=== PATIENT | female | born 1975 | race Two or more races ===

== ENCOUNTER 2020-05-06 12:18 | Emergency (ER) | payer MEDICARE, MEDICAID ==
[~2020-05-06] VITALS: Ht 172.7 cm; Wt 96.8 kg
[~2020-05-06 12:18] MED LIST: ARIP15TA3 PO; CLON0.1T PO; DESV50TA20 PO; HYDR-4353 PO; LEVO75TA7 PO; PANT-47 PO; TRAZ-256 PO; UBRO50TA PO
[2020-05-06 13:54] LABS: CLARITY,URINE CLEAR (Clear); COLOR,URINE YELLOW (Yellow); GLUCOSE, URINE NEGATIVE (Neg); KETONES,URINE NEGATIVE (Neg); LEUKOCYTE ESTERASE ,URINE NEGATIVE (Neg); NITRITES, URINE NEGATIVE (Neg); OCCULT BLOOD,URINE NEGATIVE (Neg); PH,URINE 5.5 (4.8-8.0); PROTEIN,URINE NEGATIVE (Neg); UROBILINOGEN,URINE 0.2 E.U/dL (0.2-1.0)
[2020-05-06 13:55] LABS: UA COLLECTION TYPE CLN CATCH MIDSTREAM
[2020-05-06 14:13] LABS: BASOPHILS % (AUTO) 0.6 % (0-1); EOSINOPHILS % (AUTO) 0.5 % (0-6); HEMATOCRIT 36.3 % (35.0-45.0); LYMPHOCYTES # (AUTO) 1.7 X10'3 (1.1-4.8); LYMPHOCYTES % (AUTO) 34.8 % (21-51); MEAN CORPUSCULAR HGB CONC 33.1 g/dL (33.0-36.5); MEAN CORPUSCULAR VOLUME 84.7 FL (78-98); MEAN PLATELET VOLUME 8.3 FL (7.4-10.4); MONOCYTES # (AUTO) 0.3 X10'3 (0-0.9); MONOCYTES % (AUTO) 6.6 % (2-12); NEUTROPHILS # (AUTO) 2.9 X10'3 (1.8-7.7); NEUTROPHILS % (AUTO) 57.5 % (42-75); PLATELET COUNT 217 X10'3 (140-440); RED BLOOD COUNT 4.29 X10'6 (4.20-5.60); RED CELL DISTRIBUTION WIDTH 15.7 % (11.5-14.5)
[2020-05-06 14:27] LABS: PARTIAL THROMBOPLASTIN TIME 26 SECONDS (22-32)
[2020-05-06 14:30] LABS: ALANINE AMINOTRANSFERASE 24 U/L (12-78); ALBUMIN/GLOBULIN RATIO 1.1 (1.1-1.5); ALKALINE PHOSPHATASE 54 IU/L (46-116); ANION GAP 5 (8-16); ASPARTATE AMINO TRANSFERASE 21 U/L (10-37); BILIRUBIN,TOTAL 0.2 MG/DL (0.1-1.0); BLOOD UREA NITROGEN 17 MG/DL (7-18); BUN/CREATININE RATIO 14.5 (6.6-38.0); CALCIUM 9.3 MG/DL (8.5-10.1); CHLORIDE 105 MMOL/L (99-107); CREATININE 1.17 MG/DL (0.40-0.90); GLUCOSE 84 MG/DL (70-104); POTASSIUM 3.5 MMOL/L (3.5-5.1); SODIUM 140 MMOL/L (135-145); TOTAL CARBON DIOXIDE 29.6 MMOL/L (24-32); TOTAL PROTEIN 7.5 G/DL (6.4-8.2); eGFR 50 ML/MIN
[2020-05-06] MEDS ORDERED: ondansetron/PF 4mg/2ml inj IV ONE (14:40)
[2020-05-06] MEDS ORDERED: HYDROmorphone inj. 0.5 MG/0.5 ML DISP.SYRIN IV ONE (14:40)
[2020-05-06] MEDS ORDERED: ondansetron 4mg rapidly disintigrating tab PO ONE (15:15)
[2020-05-06] MEDS ORDERED: HYDROmorphone inj. 0.5 MG/0.5 ML DISP.SYRIN IM ONE (15:15)
[2020-05-06] MEDS ORDERED: CHOL10006 PO (15:51)
[2020-05-06] MEDS ORDERED: DESV25TA2 PO (15:51)
[2020-05-06] MEDS ORDERED: MULT-1085 PO (15:51)
[2020-05-06] MEDS ORDERED: ZOLP10TA PO (15:51)
[2020-05-06] MEDS ORDERED: TOPI50TA PO (15:51)
[2020-05-06] MEDS ORDERED: NALO25TA4 PO (15:51)
[2020-05-06 16:32] VITALS: BP 127/76
== END 2020-05-06 16:33 | disposition home or self-care (01) ==
LOC: ER 12:20
DX: K92.0 Hematemesis (principal); Z79.2 Long term (current) use of antibiotics; Z88.5 Allergy status to narcotic agent; Z88.8 Allergy status to other drugs, medicaments and biological substances; Z79.899 Other long term (current) drug therapy
CPT/HCPCS: 36415; 71045; 80053; 81003; 85025; 85610; 85730; 86885; 86900; 86901; 96372; 99285; J1170

== ENCOUNTER 2020-09-26 08:29 | Emergency (ER) | payer MEDICARE, MEDICAID ==
[~2020-09-26] VITALS: Ht 172.7 cm; Wt 100.0 kg
[~2020-09-26 08:29] MED LIST changes: +CHOL10006 PO; +DESV25TA2 PO; -DESV50TA20 PO; +MULT-1085 PO; +NALO25TA4 PO; +TOPI50TA PO; +ZOLP10TA PO
--- NOTE | 2020-09-26 10:03 | NUR ---
PT BACK FRO XRAY.
[2020-09-26] MEDS ORDERED: METH-360 PO (10:14)
[2020-09-26] MEDS ORDERED: orphenadrine citrate 60mg/2ml inj. IM ONE (10:15)
[2020-09-26] MEDS ORDERED: ketorolac tromethamine 15mg/ml inj. IM ONE (10:15)
[2020-09-26 10:51] VITALS: BP 99/64
== END 2020-09-26 10:54 | disposition home or self-care (01) ==
LOC: ER 08:30
DX: S70.01XA Contusion of right hip, initial encounter (principal); M25.551 Pain in right hip; G89.29 Other chronic pain; Z98.890 Other specified postprocedural states; Z88.8 Allergy status to other drugs, medicaments and biological substances; Z91.011 Allergy to milk products; Z91.018 Allergy to other foods; Z88.0 Allergy status to penicillin; Z88.5 Allergy status to narcotic agent; Z88.1 Allergy status to other antibiotic agents; Z79.899 Other long term (current) drug therapy; X58.XXXA Exposure to other specified factors, initial encounter; Y93.89 Activity, other specified; Y92.89 Other specified places as the place of occurrence of the external cause; Y99.8 Other external cause status
CPT/HCPCS: 73502; 96372; 99284; J1885; J2360

== ENCOUNTER 2020-10-18 01:26 | Inpatient (IN) | payer MEDICARE, MEDICAID ==
[~2020-10-18] VITALS: Ht 172.7 cm; Wt 102.3 kg
[2020-10-18] VITALS (17 sets, daily range): BP systolic 92–123; BP diastolic 46–82
[~2020-10-18 01:26] MED LIST changes: +METH-360 PO
[2020-10-18 02:05] LABS: BASOPHILS % (AUTO) 0.7 % (0-1); EOSINOPHILS # (AUTO) 0.1 X10'3 (0-0.9); EOSINOPHILS % (AUTO) 2.3 % (0-6); HEMATOCRIT 35.1 % (35.0-45.0); HEMOGLOBIN 11.3 g/dl (12.0-16.0); LYMPHOCYTES % (AUTO) 36.8 % (21-51); MEAN CORPUSCULAR HEMOGLOBIN 26.3 PG (27.0-31.0); MEAN CORPUSCULAR HGB CONC 32.3 g/dL (33.0-36.5); MEAN CORPUSCULAR VOLUME 81.4 FL (78-98); MEAN PLATELET VOLUME 8.1 FL (7.4-10.4); MONOCYTES # (AUTO) 0.4 X10'3 (0-0.9); MONOCYTES % (AUTO) 6.8 % (2-12); NEUTROPHILS # (AUTO) 2.9 X10'3 (1.8-7.7); NEUTROPHILS % (AUTO) 53.4 % (42-75); PLATELET COUNT 237 X10'3 (140-440); RED BLOOD COUNT 4.31 X10'6 (4.20-5.60); WHITE BLOOD COUNT 5.4 X10'3 (4.5-11.0)
[2020-10-18 02:15] LABS: ALANINE AMINOTRANSFERASE 29 U/L (12-78); ALBUMIN 3.6 G/DL (3.4-5.0); ALKALINE PHOSPHATASE 66 IU/L (46-116); ANION GAP 10 (8-16); ASPARTATE AMINO TRANSFERASE 23 U/L (10-37); BILIRUBIN,TOTAL 0.1 MG/DL (0.1-1.0); BLOOD UREA NITROGEN 17 MG/DL (7-18); BUN/CREATININE RATIO 13.3 (6.6-38.0); CALCIUM 8.8 MG/DL (8.5-10.1); CHLORIDE 108 MMOL/L (99-107); CREATININE 1.28 MG/DL (0.40-0.90); GLUCOSE 109 MG/DL (70-104); LIPASE 139 U/L (73-393); POTASSIUM 3.3 MMOL/L (3.5-5.1); SODIUM 144 MMOL/L (135-145); TOTAL CARBON DIOXIDE 26.3 MMOL/L (24-32); TOTAL PROTEIN 7.3 G/DL (6.4-8.2); eGFR 45 ML/MIN
[2020-10-18] MEDS ORDERED: pantoprazole 40 MG vial IV ONE (02:30)
[2020-10-18] MEDS ORDERED: oxyCODONE/APAP 10/325mg tablet PO ONE (02:35)
[2020-10-18] MEDS ORDERED: ondansetron/PF 4mg/2ml inj IV ONE (02:35)
[2020-10-18] MEDS ORDERED: GALC120P SQ (02:59)
--- NOTE | 2020-10-18 03:00 | NUR ---
PT BECAME NAUSEAS AFTER TAKING PAIN PILL, ZOFRAN WAS ALSO GIVEN, WILL CONTINUE TO EVALUATE AND MONITOR
[2020-10-18 03:12] LABS: URINE HCG NEGATIVE (NEG)
[2020-10-18 03:13] LABS: CLARITY,URINE CLEAR (Clear); COLOR,URINE YELLOW (Yellow); GLUCOSE, URINE NEGATIVE (Neg); KETONES,URINE NEGATIVE (Neg); LEUKOCYTE ESTERASE ,URINE NEGATIVE (Neg); NITRITES, URINE NEGATIVE (Neg); OCCULT BLOOD,URINE NEGATIVE (Neg); PROTEIN,URINE NEGATIVE (Neg); UROBILINOGEN,URINE 0.2 E.U/dL (0.2-1.0)
[2020-10-18 03:14] LABS: OCCULT BLOOD STOOL POSITIVE (Neg)
[2020-10-18 03:15] LABS: UA COLLECTION TYPE CLN CATCH MIDSTREAM
[2020-10-18] MEDS ORDERED: HYDROmorphone inj. 0.5 MG/0.5 ML DISP.SYRIN IV ONE (03:20)
[2020-10-18] MEDS ORDERED: potassium Cl 40MEQ/1/2NS 520ml 520 ML IV PRN ×2 (03:30)
[2020-10-18] MEDS: metoclopramide 5 mg/ml inj IV PRN ×2 (03:39→13:53)
[2020-10-18] MEDS: normal saline 1000ml 1,000 ML IV SCH ×3 (03:39→21:37)
[2020-10-18] MEDS ORDERED: zolpidem 5mg tablet PO PRN (03:40)
[2020-10-18] MEDS: pantoprazole 40MG/NS 100ML BAG 100 ML IV SCH ×4 (03:45→21:52)
--- NOTE | 2020-10-18 07:00 | NUR ---
Pt reporting she is with dry heaves. PRN antiemetic Reglan not available till after 9am, will page hospitalist.
--- NOTE | 2020-10-18 07:10 | NUR ---
Dr. Aaron paged and awaiting call.
[2020-10-18] MEDS: (Naloxegol Oxalate (Movantik) 1 TAB) PO SCH (08:00)
[2020-10-18] MEDS ORDERED: topiramate 25mg tablet PO SCH (08:00)
--- NOTE | 2020-10-18 08:00 | NUR ---
has not called, MD Aaron repaged.
--- NOTE | 2020-10-18 08:42 | NUR ---
MD MOE CALLED AND UPDATED ON PT UNCONTROLLED N/V. RECEIVED TVO FOR BENADRYL 25 MG IV Q6 HR PRN N/V AND ZOFRAN 4MG IV Q6 HR PRN N/V
[2020-10-18 09:30] LABS: BASOPHILS % (AUTO) 0.7 % (0-1); EOSINOPHILS # (AUTO) 0.1 X10'3 (0-0.9); EOSINOPHILS % (AUTO) 2.2 % (0-6); HEMATOCRIT 32.8 % (35.0-45.0); HEMOGLOBIN 10.6 g/dl (12.0-16.0); LYMPHOCYTES # (AUTO) 1.6 X10'3 (1.1-4.8); LYMPHOCYTES % (AUTO) 34.8 % (21-51); MEAN CORPUSCULAR HEMOGLOBIN 26.6 PG (27.0-31.0); MEAN CORPUSCULAR HGB CONC 32.4 g/dL (33.0-36.5); MEAN CORPUSCULAR VOLUME 81.9 FL (78-98); MONOCYTES # (AUTO) 0.4 X10'3 (0-0.9); MONOCYTES % (AUTO) 8.6 % (2-12); NEUTROPHILS # (AUTO) 2.5 X10'3 (1.8-7.7); NEUTROPHILS % (AUTO) 53.7 % (42-75); PLATELET COUNT 209 X10'3 (140-440); RED CELL DISTRIBUTION WIDTH 17.2 % (11.5-14.5); WHITE BLOOD COUNT 4.7 X10'3 (4.5-11.0)
[2020-10-18] MEDS: ondansetron/PF 4mg/2ml inj IV PRN ×3 (09:33→23:48)
[2020-10-18] MEDS: diphenhydrAMINE 50 mg/ml inj IV PRN ×3 (09:33→23:50)
[2020-10-18] MEDS: HYDROmorphone inj. 0.5 MG/0.5 ML DISP.SYRIN IV PRN ×3 (09:38→19:06)
[2020-10-18] MEDS: K and/or MAG REPLACEMENT MC SCH ×2 (09:45→19:21)
[2020-10-18] MEDS: ARIPIPRAZOLE 15 MG TABLET PO SCH (09:49)
[2020-10-18] MEDS: levoTHYROXINE 75mcg tablet PO SCH (09:49)
[2020-10-18] MEDS ORDERED: ESTR1PAT95 TOP (10:33)
[2020-10-18] MEDS ORDERED: TOP100T PO (10:33)
[2020-10-18] MEDS ORDERED: DESV50TA PO (10:33)
[2020-10-18] MEDS ORDERED: PREG50CA PO (10:33)
[2020-10-18] MEDS ORDERED: UBRO100T PO (10:38)
--- NOTE | 2020-10-18 13:55 | NUR ---
PT MEDICATED FOR PAIN AND NAUSEA
--- NOTE | 2020-10-18 14:20 | NUR ---
Pt was taken to GI lab.
[2020-10-18] MEDS ORDERED: MIDAZolam 1 MG/ML 5ML VIAL ONE (14:22)
[2020-10-18] MEDS ORDERED: LIDOcaine Viscous 15ml cup ONE (14:22)
[2020-10-18] MEDS ORDERED: fentaNYL/PF 50MCG/1 ML 2ML syringe ONE (14:22)
--- NOTE | 2020-10-18 17:49 | NUR ---
focused assessment: anterior lungs sounds inspiratory and expiratory clear. regular, symmetrical. no cough. pt reports sob on exertion. bowel sounds heard in all 4 quadrants, pain in upper abdomen on palpation. pt reports passing flatus. ambulates independently to toilet.
--- NOTE | 2020-10-18 17:50 | NUR ---
PAGER ID: [phone] MESSAGE: [facility] [id number] re: [id number] Abdifatah Chappell GI doctor recommended clear liquid, could I change her diet at this time. thanks oLuis.
--- NOTE | 2020-10-18 18:02 | NUR ---
pt restarted on protonix 8 mg/hr. 25 mg iv benadryl and 4 mg iv zofran iv administered
--- NOTE | 2020-10-18 18:30 | NUR ---
Problems reprioritized. Patient report given, questions answered & plan of care reviewed with Radha KELLY.
[2020-10-18] MEDS: topiramate 100mg tablet PO SCH (19:07)
[2020-10-18] MEDS ORDERED: traZODone 150mg tablet PO SCH (21:00)
[2020-10-19 02:00] VITALS: BP 111/68
[2020-10-19] MEDS: pantoprazole 40MG/NS 100ML BAG 100 ML IV SCH ×2 (02:17→08:12)
[2020-10-19] MEDS: HYDROmorphone inj. 0.5 MG/0.5 ML DISP.SYRIN IV PRN ×2 (02:18→07:07)
[2020-10-19] MEDS: metoclopramide 5 mg/ml inj IV PRN (04:14)
[2020-10-19 06:00] VITALS: BP 93/50
[2020-10-19 06:31] LABS: BASOPHILS % (AUTO) 0.6 % (0-1); EOSINOPHILS # (AUTO) 0.1 X10'3 (0-0.9); EOSINOPHILS % (AUTO) 3.1 % (0-6); HEMATOCRIT 36.1 % (35.0-45.0); HEMOGLOBIN 11.5 g/dl (12.0-16.0); LYMPHOCYTES # (AUTO) 1.5 X10'3 (1.1-4.8); LYMPHOCYTES % (AUTO) 36.3 % (21-51); MEAN CORPUSCULAR HEMOGLOBIN 26.4 PG (27.0-31.0); MEAN CORPUSCULAR VOLUME 82.7 FL (78-98); MEAN PLATELET VOLUME 8.1 FL (7.4-10.4); MONOCYTES # (AUTO) 0.3 X10'3 (0-0.9); MONOCYTES % (AUTO) 7.3 % (2-12); NEUTROPHILS # (AUTO) 2.2 X10'3 (1.8-7.7); NEUTROPHILS % (AUTO) 52.7 % (42-75); PLATELET COUNT 213 X10'3 (140-440); RED BLOOD COUNT 4.36 X10'6 (4.20-5.60); RED CELL DISTRIBUTION WIDTH 16.9 % (11.5-14.5); WHITE BLOOD COUNT 4.1 X10'3 (4.5-11.0)
--- NOTE | 2020-10-19 06:38 | NUR ---
Problems reprioritized. Patient report given, questions answered & plan of care reviewed with LETICIA Chamberlain.
[2020-10-19 06:44] LABS: ALANINE AMINOTRANSFERASE 35 U/L (12-78); ALBUMIN 3.3 G/DL (3.4-5.0); ALKALINE PHOSPHATASE 60 IU/L (46-116); ANION GAP 10 (8-16); ASPARTATE AMINO TRANSFERASE 38 U/L (10-37); BILIRUBIN,TOTAL 0.3 MG/DL (0.1-1.0); BLOOD UREA NITROGEN 13 MG/DL (7-18); BUN/CREATININE RATIO 11.5 (6.6-38.0); CALCIUM 8.9 MG/DL (8.5-10.1); CHLORIDE 110 MMOL/L (99-107); CREATININE 1.13 MG/DL (0.40-0.90); GLUCOSE 71 MG/DL (70-104); POTASSIUM 3.9 MMOL/L (3.5-5.1); SODIUM 144 MMOL/L (135-145); TOTAL CARBON DIOXIDE 24.4 MMOL/L (24-32); TOTAL PROTEIN 6.7 G/DL (6.4-8.2); eGFR 52 ML/MIN
--- NOTE | 2020-10-19 06:45 | NUR ---
Patient in room PCU 3023. I have received report from Radha KELLY and had the opportunity to ask questions and assume patient care.
[2020-10-19 07:00] VITALS: BP 105/58
[2020-10-19] MEDS: ondansetron/PF 4mg/2ml inj IV PRN (07:07)
[2020-10-19] MEDS: topiramate 100mg tablet PO SCH (07:08)
[2020-10-19] MEDS: levoTHYROXINE 75mcg tablet PO SCH (07:08)
[2020-10-19] MEDS: (Naloxegol Oxalate (Movantik) 1 TAB) PO SCH (08:00)
[2020-10-19] MEDS: ARIPIPRAZOLE 15 MG TABLET PO SCH (08:34)
[2020-10-19] MEDS ORDERED: pantoprazole 40mg Tablet.DR PO ONE (09:45)
--- NOTE | 2020-10-19 10:39 | NUR ---
Per patient, her portacath is overseen and managed by Ralph metzger. I have discussed with patient that we will flush her port with saline and heparinized syringe today prior to discharge. Signs and symptoms of infection to watch for and when to notify the doctor were discussed with the patient
--- NOTE | 2020-10-19 10:51 | NUR ---
Discharge instructions given to patient, patient verbalized understanding of all instructions made. Patient's portacath site will be flush and heparinized prior to discharge. Awaiting for pharmacy to deliver the heparinized syringe.
--- NOTE | 2020-10-19 11:05 | NUR ---
Right chest portacath was deaccessed. Portacath tubing was flushed with 10ml NS saline syringe, blood aspirated from the portacath, flush again with 10ml saline syringe without difficulty. Then, Portacath tubing flushed with 5ml heparinized syringe. Patient tolerated the procedure well. Procedure performed under sterile technique, cleaned the site with chlorhexidine swabs then covered with sterile dry gauze and transparent dressing.
--- NOTE | 2020-10-19 11:34 | NUR ---
EGD report in the chart that says patient copy was given to patient. Advised patient to follow up with Dr. Conklin in 1 week as per paperwork instruction stated. Patient verbalized understanding
[2020-10-19] MEDS ORDERED: heparin sodium, porcine/PF 100unit/ml 5ML syringe IV ONE (12:00)
--- NOTE | 2020-10-20 13:06 | NUR ---
CASE MANAGEMENT DISCHARGE FOLLOW UP: Spoke with pt via telephone. Reports that she is feeling a little better, has slept a lot since discharge; denies CP, SOB, N/V, fever/chills. States still having some blood in vomit and stools, states that it is also painful to eat, rates pain 6/10. States taking home medications Phenergan and [place]be[place] for comfort, states they are helping a little. Pt states will follow up with Dr Kim and her PCP, requesting assistance in setting up appointments, will assist pt. Verbalizes understanding of s/sx requiring further evaluation/emergent assistance. Verbalizes compliance with MD discharge instructions. States no further questions/concerns at this time. Addendum: 10/20/20 at 1418 by Razia Yo RN 1403 T/c to Dr Kim's office. Per receptionist telephone operator, pt was a no call/no show to an EGD appointment in 2019, so she will need a new referral from PCP in order to schedule. 1409 T/c to pt's PCP, left message requesting that they call pt to set up f/u appointment as well as get referral for GI specialist and that she was going to [place]. 1411 t/c to pt, notified her of results of attempt to set up f/u appointment, she states her PCP is really good about calling her back quickly. States no further needs at this time. States will return to ED if bleeding does not stop or gets worse, especially if she becomes symptomatic, she verbalizes understanding.
== END 2020-10-19 11:35 | disposition home or self-care (01) | DRG 370 ==
LOC: ER 01:26 → ED HOLD 03:26 → PCU 3S 16:46
PROVIDERS: ADMIT Internal Medicine; ATTEND Family Medicine
PROC: 0DB48ZX Excision of Esophagogastric Junction, Via Natural or Artificial Opening Endoscopic, Diagnostic (ICD-10-PCS; principal; 2020-10-18)
PROC: 0DB68ZX Excision of Stomach, Via Natural or Artificial Opening Endoscopic, Diagnostic (ICD-10-PCS; 2020-10-18)
DX: K21.01 Gastro-esophageal reflux disease with esophagitis, with bleeding (principal); K29.70 Gastritis, unspecified, without bleeding; F32.9 Major depressive disorder, single episode, unspecified; F41.9 Anxiety disorder, unspecified; G43.909 Migraine, unspecified, not intractable, without status migrainosus; G89.29 Other chronic pain; M54.9 Dorsalgia, unspecified; I10 Essential (primary) hypertension; Z79.899 Other long term (current) drug therapy; Z83.3 Family history of diabetes mellitus; Z87.442 Personal history of urinary calculi; Z90.5 Acquired absence of kidney; Z90.710 Acquired absence of both cervix and uterus; Z98.84 Bariatric surgery status; Z90.49 Acquired absence of other specified parts of digestive tract; Z88.0 Allergy status to penicillin; Z88.8 Allergy status to other drugs, medicaments and biological substances; Z88.6 Allergy status to analgesic agent; Z91.011 Allergy to milk products
CPT/HCPCS: 36415; 43239; 80053; 81003; 81025; 82272; 82948; 83690; 85025; 86885; 86900; 86901; 88305; 88313; 96374; 96375; 99152; 99285; A4620; C9113; G0378; J1170; J1200; J1642; J2250; J2405; J2765; J3010; J3480; J7030; J7040

== ENCOUNTER 2021-04-16 09:10 | Emergency (ER) | payer MEDICARE, MEDICAID ==
[~2021-04-16] VITALS: Ht 172.7 cm; Wt 112.1 kg
[~2021-04-16 09:10] MED LIST changes: -DESV25TA2 PO; +DESV50TA PO; +ESTR1PAT95 TOP; +GALC120P SQ; -METH-360 PO; +PREG50CA PO; +TOP100T PO; -TOPI50TA PO; +UBRO100T PO; -UBRO50TA PO
[2021-04-16 10:13] LABS: BASOPHILS % (AUTO) 0.7 % (0-1); EOSINOPHILS # (AUTO) 0.1 X10'3 (0-0.9); EOSINOPHILS % (AUTO) 1.6 % (0-6); HEMATOCRIT 36.9 % (35.0-45.0); HEMOGLOBIN 12.2 g/dl (12.0-16.0); LYMPHOCYTES # (AUTO) 1.6 X10'3 (1.1-4.8); LYMPHOCYTES % (AUTO) 31.8 % (21-51); MEAN CORPUSCULAR HGB CONC 32.9 g/dL (33.0-36.5); MEAN CORPUSCULAR VOLUME 82.1 FL (78-98); MEAN PLATELET VOLUME 8.5 FL (7.4-10.4); MONOCYTES # (AUTO) 0.5 X10'3 (0-0.9); MONOCYTES % (AUTO) 9.8 % (2-12); NEUTROPHILS # (AUTO) 2.8 X10'3 (1.8-7.7); NEUTROPHILS % (AUTO) 56.1 % (42-75); PLATELET COUNT 247 X10'3 (140-440); RED CELL DISTRIBUTION WIDTH 16.3 % (11.5-14.5)
--- NOTE | 2021-04-16 10:16 | NUR ---
notified dr gerber thatpt is c/o abd pain and nausea as per md he will look at the pt and not want to give anything for pain at this time.
[2021-04-16 10:19] LABS: ALANINE AMINOTRANSFERASE 58 U/L (12-78); ALBUMIN 3.5 G/DL (3.4-5.0); ALBUMIN/GLOBULIN RATIO 0.9 (1.1-1.5); ALKALINE PHOSPHATASE 82 IU/L (46-116); ANION GAP 10 (8-16); ASPARTATE AMINO TRANSFERASE 43 U/L (10-37); BILIRUBIN,TOTAL 0.1 MG/DL (0.1-1.0); BLOOD UREA NITROGEN 17 MG/DL (7-18); BUN/CREATININE RATIO 16.5 (6.6-38.0); CALCIUM 8.4 MG/DL (8.5-10.1); CHLORIDE 106 MMOL/L (99-107); CREATININE 1.03 MG/DL (0.40-0.90); GLUCOSE 104 MG/DL (70-104); LIPASE 158 U/L (73-393); POTASSIUM 4.4 MMOL/L (3.5-5.1); SODIUM 144 MMOL/L (135-145); TOTAL CARBON DIOXIDE 28.3 MMOL/L (24-32); TOTAL PROTEIN 7.2 G/DL (6.4-8.2); eGFR 58 ML/MIN
[2021-04-16] MEDS ORDERED: LORazepam 2 mg/ml vial IV ONE (10:40)
[2021-04-16] MEDS ORDERED: pantoprazole 40 MG vial IV STA (10:53)
[2021-04-16] MEDS ORDERED: normal saline 1000ml 1,000 ML IV ONE (11:05)
[2021-04-16 11:06] LABS: ETHANOL < 0.010 GM/DL (0.0-0.010); MAGNESIUM 2.1 MG/DL (1.5-2.4)
[2021-04-16] MEDS ORDERED: diatrozoate meglu/diatrozoate sod (37% iodine) 120ML oral solution PO ONE (11:20)
[2021-04-16] MEDS ORDERED: morphine 2 MG/ML inj. syringe IV ONE (11:25)
[2021-04-16 11:26] LABS: OCCULT BLOOD STOOL POSITIVE (Neg)
[2021-04-16 11:48] LABS: ACETAMINOPHEN < 2.0 UG/ML (10-30)
[2021-04-16 11:50] LABS: PARTIAL THROMBOPLASTIN TIME 25 SECONDS (22-32)
[2021-04-16] MEDS ORDERED: diatr meglu/diatrizoate 30ml oral sol.-(3 dose) bottle PO ONE (12:10)
[2021-04-16 12:23] LABS: HEMATOCRIT 33.1 % (35.0-45.0); MEAN CORPUSCULAR HEMOGLOBIN 27.1 PG (27.0-31.0); MEAN CORPUSCULAR HGB CONC 33.1 g/dL (33.0-36.5); MEAN PLATELET VOLUME 8.5 FL (7.4-10.4); PLATELET COUNT 227 X10'3 (140-440); RED BLOOD COUNT 4.04 X10'6 (4.20-5.60); WHITE BLOOD COUNT 4.1 X10'3 (4.5-11.0)
[2021-04-16] MEDS ORDERED: potassium Cl 20 mEq SR tablet PO PRN ×2 (12:25)
[2021-04-16] MEDS ORDERED: magnesium Cl slow-release 64mg tablet PO PRN (12:25)
[2021-04-16] MEDS ORDERED: magnesium 4gm in 100ml NS 100 ML IV PRN (12:25)
[2021-04-16] MEDS ORDERED: magnesium 2GM in 50ml NS 50 ML IV PRN (12:25)
[2021-04-16] MEDS ORDERED: potassium Cl 40MEQ/1/2NS 520ml 520 ML IV PRN ×2 (12:25)
[2021-04-16] MEDS ORDERED: acetaminophen 325mg tablet PO PRN (12:25)
[2021-04-16] MEDS ORDERED: iohexol 350MG/ML 100ml bottle IV ONE ×2 (12:27→13:15)
--- NOTE | 2021-04-16 12:34 | NUR ---
dr alcocer at bedside.
[2021-04-16 12:35] LABS: CLARITY,URINE CLEAR (Clear); COLOR,URINE YELLOW (Yellow); GLUCOSE, URINE NEGATIVE (Neg); KETONES,URINE NEGATIVE (Neg); OCCULT BLOOD,URINE NEGATIVE (Neg); PH,URINE 7.5 (4.8-8.0); PROTEIN,URINE NEGATIVE (Neg); UA COLLECTION TYPE CLN CATCH MIDSTREAM
[2021-04-16 12:36] LABS: LEUKOCYTE ESTERASE ,URINE NEGATIVE (Neg); NITRITES, URINE NEGATIVE (Neg); UROBILINOGEN,URINE 0.2 E.U/dL (0.2-1.0)
[2021-04-16 12:38] LABS: URINE HCG NEGATIVE (NEG)
[2021-04-16] MEDS ORDERED: ARIP20TA21 PO (12:39)
[2021-04-16] MEDS ORDERED: PROM25TA14 PO (12:39)
[2021-04-16] MEDS ORDERED: PREG50CA64 PO (12:39)
[2021-04-16] MEDS ORDERED: ALPR-13 PO (12:39)
--- NOTE | 2021-04-16 14:30 | NUR ---
I have received report from [facility] and had the opportunity to ask questions and will assume patient care once to floor.
--- NOTE | 2021-04-16 15:28 | NUR ---
spoke to dr alcocer regarding pt pain order for 0.5 mg morphine q6 hr prn for pain and norco 5-325 mg q6 hr prn for pain.
[2021-04-16] MEDS: morphine 2 MG/ML inj. syringe IV PRN ×2 (15:47→22:29)
[2021-04-16] MEDS: normal saline 1000ml 1,000 ML IV SCH ×2 (15:48→22:33)
[2021-04-16] MEDS: pantoprazole 40MG/NS 100ML BAG 100 ML IV SCH ×2 (15:54→20:33)
[2021-04-16 16:15] VITALS: BP 130/82
--- NOTE | 2021-04-16 16:15 | NUR ---
Pt arrived to room 360B. A&Ox4, no c/o, no s/sx distress. VSS. PIV infusing fluids per MD orders. Pt oriented to room and POC, questions answered, pt verbalizes understanding. Will continue to monitor.
[2021-04-16] MEDS ORDERED: UBROGEPANT 100 MG PO PRN (18:15)
[2021-04-16] MEDS ORDERED: ALPRAZolam 0.5mg tablet PO PRN (18:15)
--- NOTE | 2021-04-16 18:26 | NUR ---
Problems reprioritized. Patient report given, questions answered & plan of care reviewed with Idania KELLY.
--- NOTE | 2021-04-16 18:30 | NUR ---
Patient in room [facility] 360. I have received report from ROSELYN and had the opportunity to ask questions and assume patient care.
[2021-04-16] MEDS: proMETHazine 25mg tablet PO PRN (18:58)
[2021-04-16 19:00] VITALS: BP 105/55
[2021-04-16] MEDS: K and/or MAG REPLACEMENT MC SCH (20:00)
[2021-04-16] MEDS: pregabalin 25mg capsule PO SCH (20:34)
[2021-04-16] MEDS: topiramate 100mg tablet PO SCH (20:34)
[2021-04-16] MEDS: HYDROcodone/acetaminophen 5mg/325mg tablet PO PRN (20:34)
[2021-04-16] MEDS: traZODone 50mg tablet PO SCH (22:23)
[2021-04-16 23:00] VITALS: BP 99/56
[2021-04-17] VITALS (8 sets, daily range): BP systolic 92–122; BP diastolic 53–80
[2021-04-17] MEDS: pantoprazole 40MG/NS 100ML BAG 100 ML IV SCH ×5 (01:56→20:20)
[2021-04-17] MEDS: HYDROcodone/acetaminophen 5mg/325mg tablet PO PRN ×2 (02:36→20:32)
[2021-04-17] MEDS: morphine 2 MG/ML inj. syringe IV PRN ×2 (05:08→15:17)
[2021-04-17 06:21] LABS: BASOPHILS % (AUTO) 0.8 % (0-1); EOSINOPHILS # (AUTO) 0.1 X10'3 (0-0.9); EOSINOPHILS % (AUTO) 2.4 % (0-6); HEMATOCRIT 33.1 % (35.0-45.0); HEMOGLOBIN 10.9 g/dl (12.0-16.0); LYMPHOCYTES # (AUTO) 1.5 X10'3 (1.1-4.8); MEAN CORPUSCULAR HEMOGLOBIN 27.2 PG (27.0-31.0); MEAN CORPUSCULAR HGB CONC 33.1 g/dL (33.0-36.5); MEAN CORPUSCULAR VOLUME 82.2 FL (78-98); MEAN PLATELET VOLUME 8.7 FL (7.4-10.4); MONOCYTES # (AUTO) 0.3 X10'3 (0-0.9); MONOCYTES % (AUTO) 9.2 % (2-12); NEUTROPHILS # (AUTO) 1.7 X10'3 (1.8-7.7); NEUTROPHILS % (AUTO) 46.6 % (42-75); PLATELET COUNT 201 X10'3 (140-440); RED BLOOD COUNT 4.02 X10'6 (4.20-5.60); RED CELL DISTRIBUTION WIDTH 15.8 % (11.5-14.5); WHITE BLOOD COUNT 3.6 X10'3 (4.5-11.0)
--- NOTE | 2021-04-17 06:33 | NUR ---
Problems reprioritized. Patient report given, questions answered & plan of care reviewed with CHIP .
[2021-04-17 06:39] LABS: ALANINE AMINOTRANSFERASE 52 U/L (12-78); ALBUMIN 2.7 G/DL (3.4-5.0); ALBUMIN/GLOBULIN RATIO 0.8 (1.1-1.5); ALKALINE PHOSPHATASE 70 IU/L (46-116); ANION GAP 5 (8-16); ASPARTATE AMINO TRANSFERASE 44 U/L (10-37); BILIRUBIN,TOTAL 0.3 MG/DL (0.1-1.0); BLOOD UREA NITROGEN 12 MG/DL (7-18); BUN/CREATININE RATIO 11.8 (6.6-38.0); CALCIUM 8.3 MG/DL (8.5-10.1); CHLORIDE 111 MMOL/L (99-107); CREATININE 1.02 MG/DL (0.40-0.90); GLUCOSE 83 MG/DL (70-104); POTASSIUM 4.1 MMOL/L (3.5-5.1); SODIUM 143 MMOL/L (135-145); TOTAL CARBON DIOXIDE 26.9 MMOL/L (24-32); TOTAL PROTEIN 5.9 G/DL (6.4-8.2); eGFR 59 ML/MIN
[2021-04-17] MEDS ORDERED: ARIPIPRAZOLE 10 MG TABLET PO SCH ×2 (08:00→22:29)
[2021-04-17] MEDS: K and/or MAG REPLACEMENT MC SCH ×2 (08:00→20:00)
[2021-04-17] MEDS: NALOXEGOL OXALATE 25 MG PO SCH (08:00)
[2021-04-17] MEDS: topiramate 100mg tablet PO SCH ×2 (08:56→20:29)
[2021-04-17] MEDS: normal saline 1000ml 1,000 ML IV SCH ×3 (08:56→20:48)
[2021-04-17] MEDS: pregabalin 25mg capsule PO SCH ×2 (08:57→20:30)
[2021-04-17] MEDS: levoTHYROXINE 75mcg tablet PO SCH (08:58)
[2021-04-17] MEDS: proMETHazine 25mg tablet PO PRN (08:58)
[2021-04-17] MEDS: venlafaxine 25mg tablet PO SCH ×3 (09:00→20:31)
[2021-04-17] MEDS ORDERED: fentaNYL/PF 50MCG/1 ML 2ML syringe ONE (11:59)
[2021-04-17] MEDS ORDERED: MIDAZolam 1 MG/ML 5ML VIAL ONE (12:00)
[2021-04-17] MEDS: diphenhydrAMINE 50 mg/ml inj IV PRN ×2 (13:28→20:14)
[2021-04-17] MEDS: ondansetron/PF 4mg/2ml inj IV PRN ×2 (13:28→20:38)
[2021-04-17 16:05] LABS: BASOPHILS % (AUTO) 0.7 % (0-1); EOSINOPHILS # (AUTO) 0.1 X10'3 (0-0.9); EOSINOPHILS % (AUTO) 1.9 % (0-6); HEMATOCRIT 32.5 % (35.0-45.0); HEMOGLOBIN 10.8 g/dl (12.0-16.0); LYMPHOCYTES # (AUTO) 1.4 X10'3 (1.1-4.8); MEAN CORPUSCULAR HEMOGLOBIN 26.9 PG (27.0-31.0); MEAN CORPUSCULAR HGB CONC 33.2 g/dL (33.0-36.5); MEAN PLATELET VOLUME 8.5 FL (7.4-10.4); MONOCYTES # (AUTO) 0.3 X10'3 (0-0.9); MONOCYTES % (AUTO) 8.7 % (2-12); NEUTROPHILS # (AUTO) 1.6 X10'3 (1.8-7.7); NEUTROPHILS % (AUTO) 47.7 % (42-75); PLATELET COUNT 200 X10'3 (140-440); RED BLOOD COUNT 4.01 X10'6 (4.20-5.60); WHITE BLOOD COUNT 3.3 X10'3 (4.5-11.0)
--- NOTE | 2021-04-17 18:29 | NUR ---
Problems reprioritized. Patient report given, questions answered & plan of care reviewed with Jp KELLY.
[2021-04-17] MEDS: traZODone 50mg tablet PO SCH (20:28)
[2021-04-17] MEDS ORDERED: zolpidem 5mg tablet PO PRN (22:10)
[2021-04-17] MEDS ORDERED: zolpidem 5mg tablet PO SCH (22:29)
[2021-04-18] VITALS: BP 92/52
[2021-04-18] MEDS: pantoprazole 40MG/NS 100ML BAG 100 ML IV SCH ×3 (00:48→11:00)
[2021-04-18] MEDS: morphine 2 MG/ML inj. syringe IV PRN ×2 (00:52→07:04)
[2021-04-18] MEDS: normal saline 1000ml 1,000 ML IV SCH (04:36)
[2021-04-18] MEDS: ondansetron/PF 4mg/2ml inj IV PRN ×2 (05:31→11:26)
[2021-04-18] MEDS: diphenhydrAMINE 50 mg/ml inj IV PRN ×2 (05:34→11:25)
[2021-04-18 06:12] LABS: BASOPHILS % (AUTO) 0.6 % (0-1); EOSINOPHILS # (AUTO) 0.1 X10'3 (0-0.9); EOSINOPHILS % (AUTO) 2.9 % (0-6); HEMATOCRIT 34.6 % (35.0-45.0); HEMOGLOBIN 11.4 g/dl (12.0-16.0); LYMPHOCYTES # (AUTO) 1.5 X10'3 (1.1-4.8); LYMPHOCYTES % (AUTO) 37.9 % (21-51); MEAN CORPUSCULAR HEMOGLOBIN 26.9 PG (27.0-31.0); MEAN CORPUSCULAR HGB CONC 33.1 g/dL (33.0-36.5); MEAN CORPUSCULAR VOLUME 81.2 FL (78-98); MEAN PLATELET VOLUME 8.4 FL (7.4-10.4); MONOCYTES # (AUTO) 0.4 X10'3 (0-0.9); NEUTROPHILS # (AUTO) 1.8 X10'3 (1.8-7.7); NEUTROPHILS % (AUTO) 47.6 % (42-75); PLATELET COUNT 219 X10'3 (140-440); RED BLOOD COUNT 4.25 X10'6 (4.20-5.60); RED CELL DISTRIBUTION WIDTH 16.6 % (11.5-14.5); WHITE BLOOD COUNT 3.9 X10'3 (4.5-11.0)
[2021-04-18 06:22] LABS: ALANINE AMINOTRANSFERASE 65 U/L (12-78); ALBUMIN/GLOBULIN RATIO 0.9 (1.1-1.5); ALKALINE PHOSPHATASE 73 IU/L (46-116); ANION GAP 6 (8-16); ASPARTATE AMINO TRANSFERASE 45 U/L (10-37); BILIRUBIN,TOTAL 0.2 MG/DL (0.1-1.0); BLOOD UREA NITROGEN 11 MG/DL (7-18); BUN/CREATININE RATIO 9.6 (6.6-38.0); CALCIUM 8.6 MG/DL (8.5-10.1); CHLORIDE 108 MMOL/L (99-107); CREATININE 1.15 MG/DL (0.40-0.90); GLUCOSE 100 MG/DL (70-104); MAGNESIUM 2.2 MG/DL (1.5-2.4); POTASSIUM 3.7 MMOL/L (3.5-5.1); SODIUM 140 MMOL/L (135-145); TOTAL CARBON DIOXIDE 26.2 MMOL/L (24-32); TOTAL PROTEIN 6.2 G/DL (6.4-8.2); eGFR 51 ML/MIN
--- NOTE | 2021-04-18 06:28 | NUR ---
I agree with assessments, documentation, and report given from VIDHI Bejarano [employer] Student. Report was given to LETICIA Myers and VERNON Carrillo student
--- NOTE | 2021-04-18 06:37 | NUR ---
Problems reprioritized. Patient report given, questions answered & plan of care reviewed with Louis Hernandez RN and SN Gurjit.
[2021-04-18] MEDS: levoTHYROXINE 75mcg tablet PO SCH (06:52)
[2021-04-18] MEDS: topiramate 100mg tablet PO SCH (07:12)
[2021-04-18] MEDS: venlafaxine 25mg tablet PO SCH (07:12)
[2021-04-18] MEDS: pregabalin 25mg capsule PO SCH (07:13)
[2021-04-18 07:58] VITALS: BP 100/64
[2021-04-18] MEDS: K and/or MAG REPLACEMENT MC SCH (08:00)
[2021-04-18] MEDS: NALOXEGOL OXALATE 25 MG PO SCH (08:00)
[2021-04-18] MEDS ORDERED: ARIPIPRAZOLE 10 MG TABLET PO SCH (08:00)
--- NOTE | 2021-04-18 08:10 | NUR ---
Patient in room [facility] 360. I have received report from Jp KELLY and had the opportunity to ask questions and assume patient care.
[2021-04-18] MEDS: proMETHazine 25mg tablet PO PRN (09:13)
[2021-04-18] MEDS: HYDROcodone/acetaminophen 5mg/325mg tablet PO PRN (09:13)
[2021-04-18 12:58] VITALS: BP 93/51
--- NOTE | 2021-04-18 14:09 | NUR ---
Patient discharged by student, patient showed verbal understanding of the teaching. No new medications were added. Patients IV were taken out at discharge and pressure held. Patient left with all of her belongings at time of discharge and was taken down to the lobby via wheelchair.
== END 2021-04-18 12:30 | disposition home or self-care (01) ==
LOC: ER 09:12 → CANBEDREQ 13:31 → SUR 3N 16:31 → ER 04-18 12:30
DX: K92.2 Gastrointestinal hemorrhage, unspecified (principal); Z20.822 Contact with and (suspected) exposure to COVID-19; I95.1 Orthostatic hypotension; G89.29 Other chronic pain; Z98.890 Other specified postprocedural states; Z98.84 Bariatric surgery status; Z85.9 Personal history of malignant neoplasm, unspecified; Z79.899 Other long term (current) drug therapy; Z88.6 Allergy status to analgesic agent; Z88.8 Allergy status to other drugs, medicaments and biological substances; Z88.0 Allergy status to penicillin; Z91.048 Other nonmedicinal substance allergy status; Z91.011 Allergy to milk products; Z88.1 Allergy status to other antibiotic agents
CPT/HCPCS: 36415; 74174; 80053; 80320; 80329; 81003; 81025; 82272; 83690; 83735; 85025; 85027; 85610; 85730; 86885; 86900; 86901; 86920; 87081; 87635; 96361; 96374; 96375; 96376; 99291; C9113; C9803; J1200; J2060; J2250; J2270; J2405; J3010; J7030; Q9963; Q9967; 88305; 88342; 99285; G0378; Q0169

== ENCOUNTER 2021-08-13 09:41 | Emergency (ER) | payer MEDICARE, MEDICAID ==
[~2021-08-13] VITALS: Ht 172.7 cm; Wt 111.4 kg
[~2021-08-13 09:41] MED LIST changes: +ALPR-13 PO; -ARIP15TA3 PO; +ARIP20TA21 PO; -GALC120P SQ; -HYDR-4353 PO; -PREG50CA PO; +PREG50CA64 PO; +PROM25TA14 PO
[2021-08-13 10:09] VITALS: BP 105/67
[2021-08-13 10:54] LABS: BASOPHILS % (AUTO) 0.9 % (0-1); EOSINOPHILS # (AUTO) 0.1 X10'3 (0-0.9); EOSINOPHILS % (AUTO) 2.5 % (0-6); HEMATOCRIT 36.1 % (35.0-45.0); HEMOGLOBIN 11.8 g/dl (12.0-16.0); LYMPHOCYTES # (AUTO) 1.3 X10'3 (1.1-4.8); LYMPHOCYTES % (AUTO) 38.5 % (21-51); MEAN CORPUSCULAR HEMOGLOBIN 25.5 PG (27.0-31.0); MEAN CORPUSCULAR HGB CONC 32.8 g/dL (33.0-36.5); MEAN CORPUSCULAR VOLUME 77.7 FL (78-98); MEAN PLATELET VOLUME 8.4 FL (7.4-10.4); MONOCYTES # (AUTO) 0.3 X10'3 (0-0.9); MONOCYTES % (AUTO) 9.1 % (2-12); NEUTROPHILS # (AUTO) 1.6 X10'3 (1.8-7.7); PLATELET COUNT 219 X10'3 (140-440); RED BLOOD COUNT 4.65 X10'6 (4.20-5.60); WHITE BLOOD COUNT 3.3 X10'3 (4.5-11.0)
[2021-08-13 11:10] LABS: ALANINE AMINOTRANSFERASE 33 U/L (12-78); ALBUMIN 3.5 G/DL (3.4-5.0); ALKALINE PHOSPHATASE 63 IU/L (46-116); ANION GAP 7 (8-16); ASPARTATE AMINO TRANSFERASE 25 U/L (10-37); BILIRUBIN,TOTAL 0.3 MG/DL (0.1-1.0); BLOOD UREA NITROGEN 22 MG/DL (7-18); BUN/CREATININE RATIO 20.8 (6.6-38.0); CALCIUM 8.5 MG/DL (8.5-10.1); CHLORIDE 109 MMOL/L (99-107); CREATININE 1.06 MG/DL (0.40-0.90); GLUCOSE 127 MG/DL (70-104); LIPASE 137 U/L (73-393); SODIUM 140 MMOL/L (135-145); TOTAL CARBON DIOXIDE 24.3 MMOL/L (24-32); eGFR 56 ML/MIN
[2021-08-13 13:23] LABS: BASOPHILS % (AUTO) 0.7 % (0-1); EOSINOPHILS # (AUTO) 0.1 X10'3 (0-0.9); EOSINOPHILS % (AUTO) 1.5 % (0-6); HEMATOCRIT 36.4 % (35.0-45.0); HEMOGLOBIN 11.8 g/dl (12.0-16.0); LYMPHOCYTES # (AUTO) 1.4 X10'3 (1.1-4.8); LYMPHOCYTES % (AUTO) 27.8 % (21-51); MEAN CORPUSCULAR HEMOGLOBIN 25.3 PG (27.0-31.0); MEAN CORPUSCULAR HGB CONC 32.4 g/dL (33.0-36.5); MEAN CORPUSCULAR VOLUME 78.2 FL (78-98); MEAN PLATELET VOLUME 8.5 FL (7.4-10.4); MONOCYTES # (AUTO) 0.5 X10'3 (0-0.9); MONOCYTES % (AUTO) 9.3 % (2-12); NEUTROPHILS % (AUTO) 60.7 % (42-75); PLATELET COUNT 230 X10'3 (140-440); RED BLOOD COUNT 4.66 X10'6 (4.20-5.60); RED CELL DISTRIBUTION WIDTH 16.2 % (11.5-14.5)
[2021-08-13] MEDS ORDERED: SUCR1TAB34 PO (13:34)
[2021-08-13] MEDS ORDERED: FAMO20TA8 PO (13:34)
== END 2021-08-13 19:22 | disposition home or self-care (01) ==
LOC: ER 09:42
DX: R10.10 Upper abdominal pain, unspecified (principal); K21.9 Gastro-esophageal reflux disease without esophagitis; G89.29 Other chronic pain; Z95.5 Presence of coronary angioplasty implant and graft; Z90.710 Acquired absence of both cervix and uterus; Z79.899 Other long term (current) drug therapy; Z88.0 Allergy status to penicillin; Z91.011 Allergy to milk products; Z88.8 Allergy status to other drugs, medicaments and biological substances; Z91.018 Allergy to other foods
CPT/HCPCS: 36415; 80053; 83690; 85025; 99283